=== PATIENT | male | born 1970 | race Two or more races ===

== ENCOUNTER 2016-12-02 00:16 | Emergency (ER) | payer OTHER ==
[2016-12-02] MEDS ORDERED: HYDROMORPHONE HCL INJ/PF 2 MG/ML AMPULE IV ONE (03:08)
[2016-12-02] MEDS ORDERED: NORMAL SALINE 500 ML IV ONE (03:09)
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
[2016-12-02 03:50] LABS: ABSOLUTE MONOCYTES (AUTO) 0.8 10^3/uL (0.1-1.4); ABSOLUTE NEUT (AUTO) 7.9 10^3/uL (1.7-8.2); BASOPHILS % (AUTO) 0.4 % (0-2); EOSINOPHILS % (AUTO) 0.3 % (0-6); HEMATOCRIT 44.8 % (37.9-51.0); HEMOGLOBIN 15.4 g/dL (13.5-17.0); HGB HCT DIFFERENCE 1.4; LYMPHOCYTES % (AUTO) 25.9 % (13-45); MEAN CORPUSCULAR HEMOGLOBIN 30.2 pg (27.0-33.4); MEAN CORPUSCULAR HGB CONC 34.3 g/dL (32.0-36.0); MEAN CORPUSCULAR VOLUME 88 fl (80-97); MONOCYTES % (AUTO) 6.5 % (3-13); RED BLOOD COUNT 5.09 10^6/uL (4.35-5.55); RED CELL DISTRIBUTION WIDTH 12.8 % (11.5-14.0); SEGMENTED NEUTROPHILS % (AUTO) 66.9 % (42-78); WHITE BLOOD COUNT 11.7 10^3/uL (4.0-10.5)
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
[2016-12-02 04:03] LABS: ANION GAP 12 (5-19); BLOOD UREA NITROGEN 13 mg/dL (7-20); CALCIUM 10.2 mg/dL (8.4-10.2); CARBON DIOXIDE 26 mmol/L (22-30); CHLORIDE 105 mmol/L (98-107); CREATININE RESULT 0.78 mg/dL (0.52-1.25); GLUCOSE 110 mg/dL (75-110); POTASSIUM 3.6 mmol/L (3.6-5.0); SODIUM 142.7 mmol/L (137-145)
[2016-12-02] MEDS ORDERED: FENTANYL CITRATE INJ/PF 100 MCG/2 ML AMPUL IV ONE (04:17)
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
[2016-12-02] MEDS ORDERED: HYDROCODONE/ACETAMINOPHEN 5-325 MG 6 TAB/DSPK PO PRN (06:16)
[2016-12-02 10:11] VITALS: BP 107/58
== END 2016-12-02 10:11 | disposition home or self-care (01) ==
LOC: MERGE 00:16 → ER 00:16
DX: S40.011A Contusion of right shoulder, initial encounter (principal); R07.81 Pleurodynia; V09.20XA Pedestrian injured in traffic accident involving unspecified motor vehicles, initial encounter
CPT/HCPCS: 99285; 96361; 96374; 96375; 86900; 86901; 36415; 86850; 85025; 80048; 73030; 71260; 74177; J3010; J1170; J7040

== ENCOUNTER 2016-12-06 11:39 | Emergency (ER) | payer OTHER ==
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
[2016-12-06 12:27] LABS: ABSOLUTE LYMPHOCYTES (AUTO) 2.7 10^3/uL (0.5-4.7); ABSOLUTE MONOCYTES (AUTO) 0.6 10^3/uL (0.1-1.4); ABSOLUTE NEUT (AUTO) 4.2 10^3/uL (1.7-8.2); BASOPHILS % (AUTO) 0.6 % (0-2); EOSINOPHILS % (AUTO) 0.2 % (0-6); HEMATOCRIT 37.2 % (37.9-51.0); HEMOGLOBIN 13.1 g/dL (13.5-17.0); HGB HCT DIFFERENCE 2.1; LYMPHOCYTES % (AUTO) 35.5 % (13-45); MEAN CORPUSCULAR HEMOGLOBIN 30.8 pg (27.0-33.4); MEAN CORPUSCULAR HGB CONC 35.3 g/dL (32.0-36.0); MEAN CORPUSCULAR VOLUME 87 fl (80-97); MONOCYTES % (AUTO) 8.1 % (3-13); RED BLOOD COUNT 4.27 10^6/uL (4.35-5.55); RED CELL DISTRIBUTION WIDTH 12.9 % (11.5-14.0); SEGMENTED NEUTROPHILS % (AUTO) 55.6 % (42-78); WHITE BLOOD COUNT 7.5 10^3/uL (4.0-10.5)
[2016-12-06 12:45] LABS: ALANINE AMINOTRANSFERASE 49 U/L (21-72); ALBUMIN 4.4 g/dL (3.5-5.0); ALKALINE PHOSPHATASE 100 U/L (38-126); ANION GAP 11 (5-19); ASPARTATE AMINO TRANSFERASE 73 U/L (17-59); BILIRUBIN,DIRECT 0.6 mg/dL (0.0-0.4); BILIRUBIN,TOTAL 1.8 mg/dL (0.2-1.3); BLOOD UREA NITROGEN 15 mg/dL (7-20); CALCIUM 10.4 mg/dL (8.4-10.2); CARBON DIOXIDE 27 mmol/L (22-30); CHLORIDE 106 mmol/L (98-107); CREATININE RESULT 0.88 mg/dL (0.52-1.25); GLUCOSE 126 mg/dL (75-110); POTASSIUM 3.9 mmol/L (3.6-5.0); SODIUM 143.9 mmol/L (137-145); TOTAL PROTEIN 7.3 g/dL (6.3-8.2)
[2016-12-06 12:46] LABS: ALCOHOL < 10 mg/dL (NONE DETECTED)
[2016-12-06 12:52] LABS: CREATINE KINASE 2097 U/L (55-170)
[2016-12-06 12:56] LABS: CREATINE KINASE MB 8.59 ng/mL (<4.55); TROPONIN I < 0.012 ng/mL
--- NOTE | 2016-12-06 14:02 | RADIOLOGY REPORT (SQ) ---
EXAM DESCRIPTION: CT HEAD WITHOUT COMPLETED DATE/TIME: 12/06/2016 1:42 pm REASON FOR STUDY: drowsy COMPARISON: None. TECHNIQUE: Axial images acquired through the brain without intravenous contrast. Images reviewed wi th bone, brain and subdural windows. Images stored on PACS. All CT scanners at this facility use dose modulation, iterative reconstruction, and/or weight based d osing when appropriate to reduce radiation dose to as low as reasonably achievable (ALARA). [facility]: Dose Right [facility]: CareDose [facility]: Dose Right [facility]: Teradose 4D [facility]: [employer] RADIATION DOSE: Up-to-date CT equipment and radiation dose reduction techniques were employed. CTDIv ol: 49.0 mGy. DLP: 783 mGy-cm. mGy. LIMITATIONS: None. FINDINGS: VENTRICLES: Normal size and contour. CEREBRUM: No masses. No hemorrhage. No midline shift. No evidence for acute infarction. Normal gra y/white matter differentiation. No areas of low density in the white matter. CEREBELLUM: No masses. No hemorrhage. No alteration of density. No evidence for acute infarction. EXTRAAXIAL SPACES: No fluid collections. No masses. ORBITS AND GLOBE: No intra- or extraconal masses. Normal contour of globe without masses. CALVARIUM: No fracture. PARANASAL SINUSES: No fluid or mucosal thickening. SOFT TISSUES: No mass or hematoma. OTHER: No other significant finding. IMPRESSION: NORMAL BRAIN CT WITHOUT CONTRAST. EVIDENCE OF ACUTE STROKE: NO. COMMENT: Quality ID # [id number]: Final reports with documentation of one or more dose reduction techniques (e.g., Automated exposure control, adjustment of the mA and/or kV according to patient size, use of iterative reconstruction technique) TECHNICAL DOCUMENTATION: JOB ID: [id number] [employer]- All Rights Reserved
[2016-12-06 14:35] LABS: URINE BARBITURATES SCREEN NEGATIVE; URINE METHADONE SCREEN NEGATIVE; URINE OPIATES LOW NEGATIVE; URINE PHENCYCLIDINE SCREEN NEGATIVE
--- NOTE | 2016-12-06 17:00 | EKG REPORT ---
SEVERITY:- ABNORMAL ECG - SINUS RHYTHM RIGHT BUNDLE BRANCH BLOCK : Confirmed by: Froylan Bruce MD 06-Dec-2016 16:59:34
[2016-12-06 18:56] LABS: APPEARANCE,URINE TURBID; BILIRUBIN,URINE SMALL (NEGATIVE); GLUCOSE, URINE NEGATIVE (NEGATIVE); KETONES,URINE 20 mg/dL (NEGATIVE); LEUKOCYTE ESTERASE,URINE NEGATIVE (NEGATIVE); NITRITE,URINE NEGATIVE (NEGATIVE); PROTEIN,URINE 100 mg/dL (NEGATIVE); URINE SPECIFIC GRAVITY 1.035
[2016-12-06] MEDS ORDERED: IBUPROFEN 800 MG TABLET PO ONE (19:19)
[2016-12-06 20:25] VITALS: BP 131/73
== END 2016-12-06 20:20 | disposition home or self-care (01) ==
LOC: ER 11:39 → MERGE 11:39 → ER 20:20
DX: S06.0X9A Concussion with loss of consciousness of unspecified duration, initial encounter (principal); S40.011A Contusion of right shoulder, initial encounter; S39.012A Strain of muscle, fascia and tendon of lower back, initial encounter; H57.10 Ocular pain, unspecified eye; M25.511 Pain in right shoulder; R51 Headache; M54.9 Dorsalgia, unspecified; V03.99XA Pedestrian with other conveyance injured in collision with car, pick-up truck or van, unspecified whether traffic or nontraffic accident, initial encounter; F17.200 Nicotine dependence, unspecified, uncomplicated
CPT/HCPCS: 36415; 70450; 80053; 80307; 81001; 82140; 82550; 82553; 84484; 85025; 93005; 93010; 99285

== ENCOUNTER 2016-12-09 06:41 | Emergency (ER) | payer SELFPAY ==
--- NOTE | 2016-12-09 07:18 | ER Document Report ---
ED General - General Mode of Arrival: Medic Information source: Patient, Emergency Med Personnel - HPI Onset: Just prior to arrival Associated symptoms: None Similar symptoms previously: Yes Recently seen / treated by doctor: Yes - General Chief Complaint: Pain Stated Complaint: RIGHT KNEE PAIN Time Seen by Provider: 12/09/16 07:00 Notes: Patient is a 46-year-old male who presents to the emergency department today after being found sleeping outside of a building. EMS states when [facility] arrived, the patient complained of right knee pain so he was transported here. On exam, patient's only complaint is bilateral foot pain. Patient states he has not had socks to wear and he has been walking a lot recently. Patient admits to being homeless, stating he just needs a place to sleep. Patient denies any pain. Patient has no focal neurological deficits. (SHANTE BARAKAT) - Related Data Allergies/Adverse Reactions: No Known Allergies Allergy (Verified 12/06/16 11:46) Past Medical History - General Information source: Patient - Social History Smoking Status: Never Smoker Cigarette use (# per day): No Frequency of alcohol use: Occasional Drug Abuse: None Lives with: Family Family History: Reviewed & Not Pertinent - Medical History Medical History: Negative Surgical Hx: Negative Review of Systems - Review of Systems Constitutional: No symptoms reported EENT: No symptoms reported Cardiovascular: No symptoms reported Respiratory: No symptoms reported Gastrointestinal: No symptoms reported Genitourinary: No symptoms reported Male Genitourinary: No symptoms reported Musculoskeletal: No symptoms reported Skin: See HPI, Lesions Hematologic/Lymphatic: No symptoms reported Neurological/Psychological: No symptoms reported -: Yes All other systems reviewed and negative Physical Exam - Vital signs Vitals: Temp Pulse Resp BP Pulse Ox 97.5 F 65 16 125/86 H 100 12/09/16 08:34 12/09/16 08:34 12/09/16 08:34 12/09/16 08:34 12/09/16 08:34 - Notes Notes: PHYSICAL EXAM GENERAL: Drowsy but arouses to verbal stimuli and shoulder shaking, interacts appropriately once awake. No acute distress. HEAD: Normocephalic, atraumatic. EYES: Pupils equal, round, and reactive to light. Extraocular movements intact. ENT: Oral mucosa moist, tongue midline. NECK: Full range of motion. Supple. Trachea midline. LUNGS: Clear to auscultation bilaterally, no wheezes, rales, or rhonchi. No respiratory distress. HEART: Regular rate and rhythm. No murmurs, gallops, or rubs. ABDOMEN: Soft, non-tender. Non-distended. Bowel sounds present in all 4 quadrants. EXTREMITIES: Moves all 4 extremities spontaneously. No edema, radial and dorsalis pedis pulses 2/4 bilaterally. No cyanosis. NEUROLOGICAL: Alert and oriented x3. Normal speech. Cranial nerves II through XII grossly intact. No focal neurological deficits. PSYCH: Normal affect, normal mood. SKIN: Warm, dry, normal turgor. Superficial blisters filled with clear fluid on the plantar surfaces of bilateral feet approximately 1 cm in diameter. No surrounding erythema or sign of infection. Blisters are tender to palpation. ( SHANTE BARAKAT) Course - Re-evaluation Re-evalutation: 12/09/16 15:57 Patient has blisters to feet, these are dressed, patient is counseled on washing and drying them and wearing socks. Given a pair of socks. Discharged with information regarding resources for the homeless. (LINO WALKER) - Vital Signs Vital signs: Temp Pulse Resp BP Pulse Ox 97.5 F 65 16 125/86 H 100 12/09/16 08:34 12/09/16 08:34 12/09/16 08:34 12/09/16 08:34 12/09/16 08:34 Discharge - Discharge Clinical Impression: Homelessness Blister of foot Qualifiers: Encounter type: initial encounter Laterality: right Qualified Code(s): S90.821A - Blister (nonthermal), right foot, initial encounter Blister of foot, left Qualifiers: Encounter type: initial encounter Qualified Code(s): S90.822A - Blister ( nonthermal), left foot, initial encounter Condition: Stable Disposition: HOME, SELF-CARE Instructions: Dressing Instructions for Open Wounds ([facility]) Print Language: French Vickyibe Attestation: 12/09/16 15:58 I personally performed the services described in the documentation, reviewed and edited the documentation which was dictated to the scribe in my presence, and it accurately records my words and actions. (LINO WALKER) Scribe Documentation - Scribe Written by Vickyibe:: Mel Landon, 12/09/2016 0759 acting as scribe for :: Elian
[2016-12-09 08:35] VITALS: BP 125/86
== END 2016-12-09 08:40 | disposition home or self-care (01) ==
LOC: EDSEX → ER 06:41
DX: S90.822A Blister (nonthermal), left foot, initial encounter (principal); S90.821A Blister (nonthermal), right foot, initial encounter; X58.XXXA Exposure to other specified factors, initial encounter; R40.0 Somnolence; Z59.0 Homelessness
CPT/HCPCS: 99283

== ENCOUNTER 2016-12-11 10:19 | Emergency (ER) | payer OTHER ==
[2016-12-11 11:19] LABS: ABSOLUTE EOSINOPHILS # (AUTO) 0.1 10^3/uL (0.0-0.6); ABSOLUTE LYMPHOCYTES (AUTO) 2.5 10^3/uL (0.5-4.7); ABSOLUTE MONOCYTES (AUTO) 0.4 10^3/uL (0.1-1.4); ABSOLUTE NEUT (AUTO) 3.2 10^3/uL (1.7-8.2); BASOPHILS % (AUTO) 0.7 % (0-2); HEMATOCRIT 36.6 % (37.9-51.0); HEMOGLOBIN 12.6 g/dL (13.5-17.0); HGB HCT DIFFERENCE 1.2; MEAN CORPUSCULAR HEMOGLOBIN 30.5 pg (27.0-33.4); MEAN CORPUSCULAR HGB CONC 34.3 g/dL (32.0-36.0); MEAN CORPUSCULAR VOLUME 89 fl (80-97); MONOCYTES % (AUTO) 6.8 % (3-13); RED BLOOD COUNT 4.12 10^6/uL (4.35-5.55); RED CELL DISTRIBUTION WIDTH 13.3 % (11.5-14.0); SEGMENTED NEUTROPHILS % (AUTO) 51.5 % (42-78); WHITE BLOOD COUNT 6.2 10^3/uL (4.0-10.5)
[2016-12-11 11:23] LABS: APPEARANCE,URINE SLIGHTLY-CLOUDY; BILIRUBIN,URINE NEGATIVE (NEGATIVE); GLUCOSE, URINE NEGATIVE (NEGATIVE); KETONES,URINE TRACE mg/dL (NEGATIVE); LEUKOCYTE ESTERASE,URINE NEGATIVE (NEGATIVE); NITRITE,URINE NEGATIVE (NEGATIVE); PROTEIN,URINE 30 mg/dL (NEGATIVE); URINE SPECIFIC GRAVITY 1.029
[2016-12-11 11:43] LABS: ALANINE AMINOTRANSFERASE 60 U/L (21-72); ALBUMIN 3.7 g/dL (3.5-5.0); ALKALINE PHOSPHATASE 87 U/L (38-126); ANION GAP 10 (5-19); ASPARTATE AMINO TRANSFERASE 56 U/L (17-59); BILIRUBIN,DIRECT 0.3 mg/dL (0.0-0.4); BILIRUBIN,TOTAL 0.9 mg/dL (0.2-1.3); BLOOD UREA NITROGEN 16 mg/dL (7-20); CALCIUM 9.6 mg/dL (8.4-10.2); CARBON DIOXIDE 26 mmol/L (22-30); CHLORIDE 110 mmol/L (98-107); GLUCOSE 94 mg/dL (75-110); SODIUM 145.7 mmol/L (137-145); TOTAL PROTEIN 6.3 g/dL (6.3-8.2)
[2016-12-11 11:46] LABS: URINE BARBITURATES SCREEN NEGATIVE; URINE METHADONE SCREEN NEGATIVE; URINE OPIATES LOW NEGATIVE; URINE PHENCYCLIDINE SCREEN NEGATIVE
[2016-12-11 11:48] LABS: ALCOHOL < 10 mg/dL (NONE DETECTED)
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
[2016-12-11] MEDS ORDERED: ACETAMINOPHEN 325 MG TABLET PO ONE (11:56)
[2016-12-11 12:33] VITALS: BP 128/72
== END 2016-12-11 12:31 | disposition home or self-care (01) ==
LOC: ER 10:19
DX: M79.1 Myalgia (principal); Z59.0 Homelessness; R53.1 Weakness; R63.0 Anorexia
CPT/HCPCS: 36415; 80053; 80307; 81001; 85025; 99285